=== PATIENT | female | born 1985 | race Caucasian/White ===

== ENCOUNTER → 2018-01-28 | Outpatient (CLI) | payer BC | END | disposition home or self-care (01) | LOC: LABWHC1 12:13 | PROVIDERS: ATTEND Obstetrics & Gynecology Maternal & Fetal Medicine | DX: Z34.81 Encounter for supervision of other normal pregnancy, first trimester (principal); Z3A.00 Weeks of gestation of pregnancy not specified | CPT/HCPCS: 36415; 82105; 82677; 84702; 86336 ==

== ENCOUNTER → 2018-04-01 | Outpatient (CLI) | payer BC ==
[2018-04-01 10:51] LABS: HCT 32.1 % (34.0-46.0); HGB 10.5 gm/dL (11.4-16.0); Hypochromasia Slight; MCH 30.2 pg (25.0-35.0); MCHC 32.9 g/dL (31.0-37.0); MCV 91.8 fL (80.0-100.0); Mean Platelet Volume 7.4; Platelet Count 269 k/uL (150-450); RBC 3.49 m/uL (3.80-5.40); RDW 13.2 % (11.5-15.5); WBC 8.3 k/uL (3.8-10.6)
== END | disposition home or self-care (01) ==
LOC: LABWHC1 08:29
PROVIDERS: ATTEND Obstetrics & Gynecology
DX: Z34.82 Encounter for supervision of other normal pregnancy, second trimester (principal); Z3A.00 Weeks of gestation of pregnancy not specified
CPT/HCPCS: 36415; 82950; 85027

== ENCOUNTER 2018-06-28 22:55 | Inpatient (IN) | payer BC ==
[2018-06-28] MEDS ORDERED: BUTORPHANOL 1 MG/ML 1 ML VIAL IV PRN (23:22)
[2018-06-28] MEDS ORDERED: CARBOPROST TROMETHAMINE 250 MCG/ML 1 ML AMP IM PRN (23:22)
[2018-06-28] MEDS ORDERED: OXYTOCIN 10 UNIT/ML 1 ML VIAL IM PRN (23:22)
[2018-06-28] MEDS ORDERED: METHYLERGONOVINE 0.2 MG/ML 1 ML AMP IM PRN (23:22)
[2018-06-28] MEDS ORDERED: LIDOCAINE 0.5% (PF) 5 MG/ML (50 ML SDV) SQ PRN (23:22)
[2018-06-28] MEDS ORDERED: TERBUTALINE 1 MG/ML VIAL SQ PRN (23:22)
[2018-06-28] MEDS ORDERED: OXYTOCIN 20 UNITS/1000 ML NS 1,000 ML IV SCH (23:30)
[2018-06-28] MEDS ORDERED: LIDOCAINE 1% INJ 10MG/ML (20 ML MDV) SQ PRN (23:41)
[2018-06-29] MEDS: LACTATED RINGERS 1,000 ML IV SCH ×2 (00:02→01:30)
[2018-06-29 00:04] LABS: Basophils % (A) 0 %; Eosinophils # (A) 0.1 k/uL (0-0.7); Eosinophils % (A) 1 %; HCT 34.2 % (34.0-46.0); HGB 11.4 gm/dL (11.4-16.0); Lymphocytes # (A) 1.9 k/uL (1.0-4.8); Lymphocytes % (A) 20 %; MCH 28.9 pg (25.0-35.0); MCHC 33.4 g/dL (31.0-37.0); MCV 86.4 fL (80.0-100.0); Monocytes # (A) 0.5 k/uL (0-1.0); Monocytes % (A) 5 %; Neutrophils # (A) 6.7 k/uL (1.3-7.7); Neutrophils % (A) 71 %; Platelet Count 225 k/uL (150-450); RBC 3.95 m/uL (3.80-5.40); RDW 15.7 % (11.5-15.5); WBC 9.3 k/uL (3.8-10.6)
[2018-06-29 00:17] VITALS: BMI 30.4
[2018-06-29] MEDS ORDERED: fentaNYL (PF) 50 MCG/ML 5 ML AMP ONE (01:27)
[2018-06-29] MEDS ORDERED: ROPIVACAINE 5MG/ML 20ML VIAL ONE (01:27)
[2018-06-29] MEDS ORDERED: SODIUM CHLORIDE 0.9% 100 ML BAG ONE (01:27)
[2018-06-29] MEDS ORDERED: ROPIVACAINE 100 MG, fentaNYL (PF) 200 MCG in SODIUM CHLORIDE 0.9% 76 ML EPIDURAL ONE (02:20)
--- NOTE | 2018-06-29 03:06 | P.HPOB ---
History of Present Illness H&P Date: 06/29/18 Chief Complaint: Spontaneous rupture membranes This is a 32-year-old female 2 para 1 with an estimated date of confinement of 07/15/2018, estimated gestational age of 37-5/7 weeks, who presents to labor and delivery with complaints of spontaneous rupture membranes with clear fluid noted at approximately 10 PM. She denies feeling any regular contractions upon arrival. course has been essentially uncomplicated. She was given Fries weekly up until 35 weeks due to history of delivery at 35 weeks with her last child. She had no issues with labor this . labs: Hepatitis B surface antigen-negative RPR-nonreactive Rubella-immune Blood type-A+ Antibody screen-negative HIV-nonreactive Hemoglobin-12.9 Random glucose-77 Group B streptococcus-negative One hour Glucola-110 Obstetrical ultrasound-normal anatomy Obstetrical history: . History of 1 vaginal delivery at 35 weeks. Gynecologic history: She does have a history of HPV. No other history of sexually transmitted diseases. Social history: She is . She works part-time as an occupational therapist. Review of Systems Constitutional: Denies chills, Denies fever Eyes: denies blurred vision, denies pain Ears, nose, mouth and throat: Denies headache, Denies sore throat Cardiovascular: Denies chest pain, Denies shortness of breath Respiratory: Denies cough Gastrointestinal: Reports abdominal pain (Irregular contractions) Genitourinary: Reports pelvic pain, Reports Musculoskeletal: Reports low back pain Integumentary: Denies pruritus, Denies rash Neurological: Denies numbness, Denies weakness Psychiatric: Denies anxiety, Denies depression Past Medical History Additional Past Medical History / Comment(s): migraines History of Any Multi-Drug Resistant Organisms: None Reported Past Surgical History: Orthopedic Surgery Additional Past Surgical History / Comment(s): right hand. wisdom teeth Past Anesthesia/Blood Transfusion Reactions: No Reported Reaction Past Psychological History: No Psychological Hx Reported Smoking Status: Never smoker Past Alcohol Use History: None Reported Past Drug Use History: None Reported - Past Family History Mother Family Medical History: Hyperlipidemia Father Family Medical History: Hypertension Son(s) Family Medical History: Asthma Additional Family Medical History / Comment(s): premature delivery @ 35 weeks Medications and Allergies Home Medications Medication Instructions Recorded Confirmed Type Pnv No.95/Ferrous Fum/Folic AC 1 tablet PO DAILY 06/28/18 06/28/18 History [ Multivitamin Tablet] Allergies Allergy/AdvReac Type Severity Reaction Status Date / Time codeine Allergy Severe Anaphylaxis Verified 06/28/18 23:06 Exam Osteopathic Statement: *. No significant issues noted on an osteopathic structural exam other than those noted in the History and Physical/Consult. Vital Signs Temp Pulse Resp BP Pulse Ox 06/28/18 23:12 97.6 F 101 H 16 128/85 97 Intake and Output 06/28/18 06/28/18 06/29/18 14:59 22:59 06:59 Other: Weight 80.286 kg HEENT: Within normal limits Heart: Regular rate and rhythm Lungs: Clear to auscultation bilaterally Abdomen: Cervix: On admission was 3-1/2-4 cm/70%/-2 station heart tones: Reactive Contractions: Irregular Extremities: Negative Homans Results Result Diagrams: 06/28/18 23:44 Abnormal Lab Results - Last 24 Hours (Table) 06/28/18 Range/Units 23:44 RDW 15.7 H (11.5-15.5) % Assessment and Plan (1) 37 weeks gestation of Current Visit: Yes Status: Acute Code(s): Z3A.37 - 37 WEEKS GESTATION OF SNOMED Code(s): 87820329 (2) Spontaneous rupture of membranes Current Visit: Yes Status: Acute Code(s): KXN9531 - SNOMED Code(s): 263536062 Plan: Admission for early labor. Oxytocin augmentation of labor if necessary. Epidural anesthesia if desired. Expectant management.
--- NOTE | 2018-06-29 03:09 | P.MSEPDOC ---
Presenting Problems - Arrival Data Date of Arrival on Unit: 06/28/18 Time of Arrival on Unit: 23:15 Mode of Transport: Wheelchair - Complaint OB-Reason for Admission/Chief Complaint: Rule Out SROM Comment: SROM clear fluid at 2200 Medical History - Information : 2 Para: 1 Term: 0 : 1 Abortions: Spontaneous or Elective: 0 Number of Living Children: 1 - Gestational Age Gestational Age by CAMPOS (wks/days): 37 Weeks and 5 Days Review of Systems - Review of Systems Constitutional: No problems Breast: No problems ENT: No problems Cardiovascular: No problems Respiratory: No problems Gastrointestinal: No problems Genitourinary: No problems Musculoskeletal: No problems Neurological: No problems Skin: No problems Vital Signs - Temperature Temperature: 97.6 F Temperature Source: Temporal Artery Scan - Pulse Right Pulse Rate: 101 Pulse Assessment Method: Pulse Oximetry - Respirations Respiratory Rate: 16 O2 Sat by Pulse Oximetry: 97 - Blood Pressure Right Arm Blood Pressure: 128/85 Blood Pressure Mean: 99 Blood Pressure Source: Automatic Cuff Medical Screen Scoring (Pre) - Cervical Exam Dilation: 1-3 cm = 1 Effacement: More than 50% = 2 Membranes: Ruptured = 3 - Uterine Contractions Frequency: > or = 36 weeks =2 Duration: > 40 seconds = 2 Intensity: N/A - Maternal Vital Signs Maternal Temperature: N/A Maternal Blood Pressure: N/A Maternal Respirations: N/A - Pain Assessment Pain Location and Character: Abdomen Pain Scale Used: Numeric (1 - 10) Pain Intensity: 0 Pain Management Goal: 3 - Assessment Baseline FHR: 160 Heart Rate - NICHD Category: Category I (Normal) = 0 NST: Reactive Position: N/A Station: N/A - Total Score Total Score (Pre): 10 - Level of Risk Level of Risk: High (10+) Physician Notification (Pre) - Physician Notified Physician Notified Date: 06/28/18 Physician Notified Time: 23:10 Physician/Practitioner Notifed:: Dr Brown - Notification Comment Comment: reported to Dr Stephanie HINES clear fluid at 2200, positive amnisure and leaking. Reported on fhts, cntrx pattern, vitals, pt not having any pain, hx PTD , progesterone shots, hx HPV. Orders to admit for labor, start IV, start pitocin at 0030 if minimal progress being made. Disposition - Disposition OB Disposition: Admit Transferred to:: st 11 I agree with the RN Medical Screening Exam: Yes Risk & Benefit of care provided described in d/c instruction: Yes Diagnosis: ENCOUNTER FOR FULL-TERM UNCOMPLICATED DELIVERY
--- NOTE | 2018-06-29 04:13 | P.PROBDLV ---
Vaginal Delivery Note - . Vaginal Delivery Note: The patient progressed to complete dilation without any oxytocin augmentation. She did receive epidural anesthesia. Once reaching complete, she began pushing. Infant's head came to a crown. With one further push, the infant's head delivered across the perineum followed by the anterior shoulder and immediately followed by the body. Nuchal cord times one was reduced around the body with delivery. Infant was placed on mother's abdomen. Cry was noted after some stimulation. Per patient request, delayed cord clamping was carried out. Cord was clamped and cut. Infant was taken to warmer for evaluation. A viable female infant was noted with scores of 7 at 1 minute and 9 at 5 minutes. Infant weight was 8 lbs. 2 oz. Placenta delivered shortly thereafter , intact, with a three-vessel cord. Uterus contracted well after oxytocin was given and uterine massage was carried out. Bladder was also drained with a catheter. Inspection of the perineum revealed a small first-degree perineal laceration. This area was anesthetized with 1% lidocaine and sutured with 3-0 Vicryl suture in a running locked fashion. Estimated blood loss is approximately 200 mL's. Mother is in stable condition and infant is taken to nursery for evaluation.
[2018-06-29] MEDS ORDERED: HYDROCORTISONE 2.5% RECTAL CREAM 30 GM TUBE RECTAL PRN (04:36)
[2018-06-29] MEDS ORDERED: diphenhydrAMINE 25 MG CAP PO PRN (04:36)
[2018-06-29] MEDS ORDERED: BENZOCAINE/MENTHOL SPRAY 1 GM/SPRAY AEROSOL TOPICAL PRN (04:36)
[2018-06-29] MEDS ORDERED: ACETAMINOPHEN TAB 325 MG TAB PO PRN (04:36)
[2018-06-29] MEDS ORDERED: WITCH HAZEL 1 EACH MED..PAD TOPICAL PRN (04:36)
[2018-06-29] MEDS ORDERED: LANOLIN CREAM 5 GM TUBE TOPICAL PRN (04:36)
[2018-06-29] MEDS ORDERED: ZOLPIDEM 5 MG TAB PO PRN (04:36)
[2018-06-29] MEDS ORDERED: diphenhydrAMINE 50 MG CAP PO PRN (04:36)
[2018-06-29] MEDS ORDERED: diphenhydrAMINE 50 MG/ML 1 ML VIAL IVP PRN ×2 (04:36)
[2018-06-29] MEDS ORDERED: SIMETHICONE 80 MG CHEWABLE PO PRN (04:36)
[2018-06-29] MEDS ORDERED: OXYTOCIN 20 UNITS/1000 ML NS 1,000 ML IV SCH (04:36)
[2018-06-29] MEDS: IBUPROFEN 600 MG TAB PO PRN ×3 (05:01→17:34)
[2018-06-29] MEDS: SENNOSIDES-DOCUSATE SODIUM 1 EACH TAB PO SCH ×2 (11:41→19:46)
[2018-06-30 07:05] LABS: Basophils % (A) 0 %; Eosinophils # (A) 0.2 k/uL (0-0.7); Eosinophils % (A) 2 %; HCT 30.6 % (34.0-46.0); HGB 10.1 gm/dL (11.4-16.0); Lymphocytes # (A) 1.9 k/uL (1.0-4.8); Lymphocytes % (A) 22 %; MCH 28.7 pg (25.0-35.0); MCV 86.8 fL (80.0-100.0); Monocytes # (A) 0.4 k/uL (0-1.0); Monocytes % (A) 4 %; Neutrophils # (A) 6.1 k/uL (1.3-7.7); Neutrophils % (A) 70 %; Platelet Count 173 k/uL (150-450); RBC 3.52 m/uL (3.80-5.40); RDW 15.9 % (11.5-15.5); WBC 8.6 k/uL (3.8-10.6)
[2018-06-30] MEDS: IBUPROFEN 600 MG TAB PO PRN ×2 (09:47→16:27)
[2018-06-30] MEDS: SENNOSIDES-DOCUSATE SODIUM 1 EACH TAB PO SCH ×2 (09:47→20:03)
--- NOTE | 2018-06-30 12:04 | P.PNOBGVD ---
Subjective - Subjective Principal diagnosis: Status post vaginal delivery day #1 Interval history: Patient is doing well. She is working on breast-feeding. Lochia is decreasing. Pain is fairly well controlled. Baby is in level I nursery on antibiotics. Patient reports: Reports appetite normal, Reports voiding normally, Reports pain well controlled, Reports ambulating normally : doing well, nursing well, other (In level I nursery) Objective - Latest Vital Signs Latest vital signs: Vital Signs Temp Pulse Resp BP 06/30/18 08:00 98.6 F 95 16 125/73 06/29/18 23:35 98.3 F 92 16 116/78 06/29/18 20:00 98.2 F 102 H 16 111/68 06/29/18 16:00 98.2 F 101 H 14 124/81 Intake and Output 06/29/18 06/30/18 06/30/18 22:59 06:59 14:59 Other: # Voids 1 1 2 - Exam Extremities: Present: normal. Absent: tenderness, edema Abdomen: Present: normal appearance, soft. Absent: distention, tenderness Uterus: Present: normal, firm. Absent: tenderness - Labs Labs: Abnormal Lab Results - Last 24 Hours (Table) 06/30/18 Range/Units 06:48 RBC 3.52 L (3.80-5.40) m/uL Hgb 10.1 L (11.4-16.0) gm/dL Hct 30.6 L (34.0-46.0) % RDW 15.9 H (11.5-15.5) % Assessment and Plan Assessment: Status post vaginal delivery day #1 (1) 37 weeks gestation of Current Visit: Yes Status: Acute Code(s): Z3A.37 - 37 WEEKS GESTATION OF SNOMED Code(s): 35680987 (2) Spontaneous rupture of membranes Current Visit: Yes Status: Acute Code(s): XCS9270 - SNOMED Code(s): 740599468 Plan: Continue with care today. Anticipate discharge home tomorrow.
--- NOTE | 2018-07-01 05:30 | P.DS ---
Providers Date of admission: 06/28/18 23:18 Expected date of discharge: 07/01/18 Attending physician: Gisella Brown Primary care physician: Stated None - Discharge Diagnosis(es) (1) 37 weeks gestation of Current Visit: Yes Status: Acute (2) Spontaneous rupture of membranes Current Visit: Yes Status: Acute Hospital Course: This is a 32-year-old female 2 para 1 at 37-5/7 weeks who presented in active labor. She delivered vaginally a viable female infant on 06/29/2018 with scores of 7 at 1 minute and 9 at 5 minutes and infant weight of 8 lbs. 2 oz. Her course has been essentially uncomplicated. Lochia has been decreasing. She is breast-feeding. Pain is fairly well controlled with ibuprofen. Vital signs are stable. Abdomen is soft with fundus firm and nontender. Extremities show negative Homans. Impression is status post vaginal delivery day #2. Plan is to discharge home today. Routine instructions are given. She states she has a breast pump at home. She will be given a prescription for ibuprofen. She is advised to follow-up in the office in 6 weeks for a check. She is advised to call the office if she has any further questions or concerns prior to her appointment time. Procedures: Spontaneous vaginal delivery of a viable female on 06/29/2018 Patient Condition at Discharge: Stable Plan - Discharge Summary New Discharge Prescriptions: New Ibuprofen [Motrin] 600 mg PO Q6HR PRN #60 tab PRN Reason: Mild Pain Or Fever >= 100.5 Continue Pnv No.95/Ferrous Fum/Folic AC [ Multivitamin Tablet] 1 tablet PO DAILY Discharge Medication List Pnv No.95/Ferrous Fum/Folic AC [ Multivitamin Tablet] 1 tablet PO DAILY 06/28/18 [History] Ibuprofen [Motrin] 600 mg PO Q6HR PRN #60 tab 07/01/18 [Rx] Follow up Appointment(s)/Referral(s): Gisella Brown DO [Doctor of Osteopathic Medicine] - 6 Weeks Activity/Diet/Wound Care/Special Instructions: Instructions 1. Do not begin any exercise program for 3 weeks. 2. Do not resume sexual relations for 3 weeks or longer if uncomfortable. 3. You may take tub baths or showers at any time. 4. You may use tampons if desired after 3 weeks. 5. Keep the area of episiotomy (stitches) clean and dry. 6. If you are not nursing, wear a good fitting, supportive bra during the day and limit fluid intake for at least 1 week to prevent breast engorgement. 7. Call the office, [phone], within the next week to make appointment for your 6 week checkup if it has not already been made. 8. Report any of the following occurrences to the doctor promptly: a. Heavy, excessive bleeding b. Chills, fever c. Burning or frequency of urination d. Pain or redness and breasts if nursing e. Increasing pain or swelling in episiotomy (stitches). In addition to the above instructions, the following additional should be followed: 1. No heavy lifting or straining (exercising) until after 6 week checkup. 2. Keep abdominal incision clean and dry: You may wear a dressing if more comfortable. 3. Make office appointment for 10 days after going home or as instructed by her doctor. Discharge Disposition: HOME SELF-CARE
[2018-07-01] MEDS: SENNOSIDES-DOCUSATE SODIUM 1 EACH TAB PO SCH (08:23)
[2018-07-01] MEDS: IBUPROFEN 600 MG TAB PO PRN (08:26)
[2018-07-01 08:35] VITALS: RESP 17
[2018-07-01 15:46] VITALS: BP 111/70; PULSE 70; TEMP 99
== END 2018-07-01 17:52 | disposition home or self-care (01) | DRG 807 ==
LOC: FBPOP 22:55 → 4FBP 23:18
PROVIDERS: ADMIT Obstetrics & Gynecology; ATTEND Obstetrics & Gynecology
PROC: 10E0XZZ Delivery of Products of Conception, External Approach (ICD-10-PCS; principal; 2018-06-29)
PROC: 0HQ9XZZ Repair Perineum Skin, External Approach (ICD-10-PCS; 2018-06-29)
PROC: 00HU33Z Insertion of Infusion Device into Spinal Canal, Percutaneous Approach (ICD-10-PCS; 2018-06-29)
PROC: 3E0R3BZ Introduction of Anesthetic Agent into Spinal Canal, Percutaneous Approach (ICD-10-PCS; 2018-06-29)
DX: O69.81X0 Labor and delivery complicated by cord around neck, without compression, not applicable or unspecified (principal); Z37.0 Single live birth; O70.0 First degree perineal laceration during delivery; Z3A.37 37 weeks gestation of pregnancy; G43.909 Migraine, unspecified, not intractable, without status migrainosus; Z88.5 Allergy status to narcotic agent; Z79.899 Other long term (current) drug therapy; Z82.49 Family history of ischemic heart disease and other diseases of the circulatory system; Z82.5 Family history of asthma and other chronic lower respiratory diseases; Z83.49 Family history of other endocrine, nutritional and metabolic diseases
CPT/HCPCS: 59025; 84112; 85025; 86850; 86900; 86901; 99213

== ENCOUNTER → 2020-11-03 | Outpatient (CLI) | payer OTHER ==
--- NOTE | 2020-11-03 16:19 | US ---
EXAMINATION TYPE: US OB >= 14 wk fetus DATE OF EXAM: 11/03/2020 COMPARISON: None CLINICAL HISTORY: O09.521 Maternal age greater than 35, Z36 Confirm. Dates TECHNIQUE: Transabdominal (TA) GESTATIONAL AGE / DATING Physician Established: Not yet established Dates by LMP (14 weeks/6 days) EDC: 04/28/2021 Dates by First Scan: No previous this is first scan Dates by Current Scan: (15 weeks/6 days) EDC: 04/21/2021 Beta HCG (if available): Not available at this time SURVEY IUP: Single PLACENTA: Anterior PREVIA: No Previa CHRISTIAN: 12.9 cm Normal CERVICAL LENGTH (transabdominal: norm > 3.0cm): 3.5 cm BIOMETRY PRESENTATION: Vertex BPD: 3.2 cm 16 weeks / 0 days HC: 11.8 cm 15 weeks / 6 days AC: 9.8 cm 16 weeks / 0 days FL: 1.8 cm 15 weeks / 3 days ESTIMATED WEIGHT IN GRAMS: 130 grams ESTIMATED WEIGHT IN LBS/OZ: 0 lbs. 5 oz. WEIGHT PERCENTAGE BASED ON ESTABLISHED DATES: 88% HC/AC: 1.2 Normal FL/AC: 18% HEART RATE: 144 bpm RHYTHM: Normal Single live IUP measuring 15 weeks 6 days. IMPRESSION: 1. Single intrauterine with an average ultrasound gestational age of 15 weeks and 6 days. F etal heart rate is 144 bpm. 2. Amniotic fluid index is 12.9 cm. 3. Last menstrual period gestational age is 88%.
== END | disposition home or self-care (01) ==
LOC: RADUSWWP 09:39
PROVIDERS: ATTEND Obstetrics & Gynecology
DX: O09.521 Supervision of elderly multigravida, first trimester (principal); Z3A.15 15 weeks gestation of pregnancy
CPT/HCPCS: 76805

== ENCOUNTER 2021-05-02 23:36 | Inpatient (IN) | payer OTHER ==
[2021-05-03] MEDS ORDERED: LIDOCAINE 0.5% (PF) 5 MG/ML (50 ML SDV) SQ PRN (00:32)
[2021-05-03] MEDS ORDERED: OXYTOCIN 10 UNIT/ML 1 ML VIAL IM PRN (00:32)
[2021-05-03] MEDS ORDERED: METHYLERGONOVINE 0.2 MG/ML 1 ML AMP IM PRN (00:32)
[2021-05-03] MEDS ORDERED: CARBOPROST TROMETHAMINE 250 MCG/ML 1 ML AMP IM PRN (00:32)
[2021-05-03] MEDS ORDERED: TERBUTALINE 1 MG/ML VIAL SQ PRN (00:32)
[2021-05-03] MEDS: LACTATED RINGERS 1,000 ML IV SCH ×3 (00:38→01:55)
[2021-05-03] MEDS ORDERED: OXYTOCIN 30 UNITS/500 ML NS 30 UNIT in SALINE 1 500ML.BAG IV SCH (00:45)
[2021-05-03 01:12] LABS: Basophils % (A) 0 %; Eosinophils # (A) 0.1 k/uL (0-0.7); Eosinophils % (A) 1 %; HCT 37.2 % (34.0-46.0); HGB 12.6 gm/dL (11.4-16.0); Lymphocytes # (A) 1.8 k/uL (1.0-4.8); Lymphocytes % (A) 20 %; MCH 30.8 pg (25.0-35.0); MCHC 33.8 g/dL (31.0-37.0); MCV 91.1 fL (80.0-100.0); Mean Platelet Volume 8.2; Monocytes # (A) 0.4 k/uL (0-1.0); Monocytes % (A) 4 %; Neutrophils # (A) 6.3 k/uL (1.3-7.7); Neutrophils % (A) 72 %; Platelet Count 215 k/uL (150-450); RBC 4.08 m/uL (3.80-5.40); RDW 13.9 % (11.5-15.5); WBC 8.7 k/uL (3.8-10.6)
--- NOTE | 2021-05-03 01:18 | P.HPOB ---
History of Present Illness H&P Date: 05/03/21 Chief Complaint: Contractions This patient is a pleasant 35-year-old 3 para 2 female estimated date of confinement 04/28/2021 estimated gestational age 40-5/7 weeks who presents to labor and delivery with complaints of contractions. Patient was scheduled for induction today per Dr. Brown. Patient's cervix in the office is 4 cm she is 5 cm now having regular contractions. Patient's is complicated by advanced maternal age and appears that she did not want to see maternal medicine. Patient was on progesterone injections apparently due to history of previous 35 week delivery. Review of Systems Genitourinary: Reports Menstruation: Reports amenorrhea Past Medical History Past Medical History: No Reported History Additional Past Medical History / Comment(s): migraines History of Any Multi-Drug Resistant Organisms: None Reported Past Surgical History: Orthopedic Surgery Additional Past Surgical History / Comment(s): right hand. wisdom teeth Past Anesthesia/Blood Transfusion Reactions: No Reported Reaction Additional Past Anesthesia/Blood Transfusion Reaction / Comment(s): Lower blood pressure with both epidurals in the past Past Psychological History: No Psychological Hx Reported Smoking Status: Never smoker Past Alcohol Use History: None Reported Past Drug Use History: None Reported - Past Family History Mother Family Medical History: Hyperlipidemia Father Family Medical History: Hypertension Son(s) Family Medical History: Asthma Additional Family Medical History / Comment(s): premature delivery @ 35 weeks Medications and Allergies Home Medications Medication Instructions Recorded Confirmed Type Pnv No.95/Ferrous Fum/Folic AC 1 tablet PO DAILY 06/28/18 05/02/21 History [ Multivitamin Tablet] Acetaminophen [Tylenol] 325 mg PO Q4H PRN 05/02/21 05/02/21 History Famotidine [Pepcid] 10 mg PO DAILY PRN 05/02/21 05/02/21 History Allergies Allergy/AdvReac Type Severity Reaction Status Date / Time codeine Allergy Severe Anaphylaxis Verified 05/02/21 23:56 Exam Vital Signs Temp Pulse Resp BP Pulse Ox 05/02/21 23:55 97.0 F L 100 16 139/85 98 Intake and Output 05/02/21 05/02/21 05/03/21 14:59 22:59 06:59 Other: Weight 81.193 kg - OBG Physical Exam Abdomen: bowel sounds normal, no diffuse tenderness, no bruit present, no guarding noted, no hepatomegaly, no splenomegaly, no mass Vulva: both: normal Vagina: normal moisture, no discharge Cervix: no lesion (Cervix is 5 cm per the RN.), no discharge Uterus: enlarged (Fundal height in the office 38.5 cm) Results blood work shows she is A positive, rubella immune, RPR nonreactive, hepatitis B negative, HIV was nonreactive, group B strep was negative, ultrasound on March 30 showed the baby to be 6 lbs. 13 oz. to 75th to 90th percentile. Glucola was normal at 93. Assessment and Plan Assessment: This is a pleasant 35-year-old 3 para 2 female 40-5/7 weeks' gestation in early labor. Patient is requesting epidural at this time. Plan is pain control with the epidural and anticipate vaginal delivery. (1) Postmaturity , 40-42 weeks gestation Current Visit: Yes Status: Acute Code(s): O48.0 - POST-TERM SNOMED Code(s): 00728977034013 (2) Normal labor Current Visit: Yes Status: Acute Code(s): O80 - ENCOUNTER FOR FULL-TERM UNCOMPLICATED DELIVERY; Z37.9 - OUTCOME OF DELIVERY, UNSPECIFIED SNOMED Code(s): 33661595 (3) Elderly multigravida Current Visit: Yes Status: Acute Code(s): O09.529 - SUPERVISION OF ELDERLY MULTIGRAVIDA, UNSPECIFIED TRIMESTER SNOMED Code(s): 504436147
[2021-05-03] MEDS ORDERED: SODIUM CHLORIDE 0.9% 100 ML BAG ONE (01:31)
[2021-05-03] MEDS ORDERED: fentaNYL (PF) 50 MCG/ML 5 ML AMP ONE (01:31)
[2021-05-03] MEDS ORDERED: ROPIVACAINE 5MG/ML 20ML VIAL ONE (01:31)
[2021-05-03] MEDS: OXYTOCIN 30 UNITS/500 ML NS 30 UNIT in SALINE 1 500ML.BAG IV SCH ×2 (04:35→06:54)
[2021-05-03] MEDS ORDERED: ACETAMINOPHEN TAB 325 MG TAB PO PRN (04:44)
[2021-05-03] MEDS ORDERED: diphenhydrAMINE 25 MG CAP PO PRN (04:44)
[2021-05-03] MEDS ORDERED: BENZOCAINE/MENTHOL SPRAY 1 GM/SPRAY AEROSOL TOPICAL PRN (04:44)
[2021-05-03] MEDS ORDERED: bisacodyL 10 MG SUPP RECTAL PRN (04:44)
[2021-05-03] MEDS ORDERED: diphenhydrAMINE 50 MG/ML 1 ML VIAL IVP PRN (04:44)
[2021-05-03] MEDS ORDERED: LANOLIN CREAM 5 GM TUBE TOPICAL PRN (04:44)
[2021-05-03] MEDS ORDERED: HYDROCORTISONE 2.5% RECTAL CREAM 30 GM TUBE RECTAL PRN (04:44)
[2021-05-03] MEDS ORDERED: SIMETHICONE 80 MG CHEWABLE PO PRN (04:44)
[2021-05-03] MEDS ORDERED: ZOLPIDEM 5 MG TAB PO PRN (04:44)
--- NOTE | 2021-05-03 04:49 | P.PROBDLV ---
Vaginal Delivery Note - . Vaginal Delivery Note: Normal spontaneous vaginal delivery viable male infant Apgars 9 and 9 at 0429 hrs. Please see dictated H&P for intimate details of this patient's admission. Brief summary this is a pleasant 35-year-old 3 para 2 female estimated gestational age 40-5/7 weeks gestation admitted to labor and delivery in active labor. On admission patient is 5 cm dilated she has an epidural placed for pain control. Labor progresses normally and she has spontaneous rupture membranes for clear fluid at 0320 hrs. Patient thereafter becomes complete and pushes approximately 3 times pushes the head to the perineum. Posterior perineum is supported we have controlled delivery of the 's head over the intact perineum. 's position is straight occiput anterior presentation. Mouth and nares are bulb suctioned. There is a nuchal cord which is easily reduced. With gentle downward traction we have delivery the anterior and posterior shoulder and rest this 's body. This is a vigorous viable male Apgars are 9 and 9 delivery time was 0429 hours. Due to the history of jaundice with previous history of jaudice with previous babies, I did not do a delayed cord clamping and we immediately clamped cord and it was cut. It appears to be trivascular. The infant is laid on the mother's abdomen. The placenta is then spontaneously delivered intact. Estimated blood loss is approximately 150 mL. There are no lacerations and no repairs required. and mother are stable in delivery room.
[2021-05-03] MEDS: IBUPROFEN 600 MG TAB PO PRN ×2 (06:37→14:39)
[2021-05-03] MEDS: SENNOSIDES-DOCUSATE SODIUM 1 EACH TAB PO PRN ×2 (07:50→19:44)
[2021-05-04] MEDS: IBUPROFEN 600 MG TAB PO PRN ×2 (00:02→07:57)
[2021-05-04 00:10] VITALS: RESP 16; TEMP 98.2
[2021-05-04] MEDS: SENNOSIDES-DOCUSATE SODIUM 1 EACH TAB PO PRN (07:58)
[2021-05-04 08:15] VITALS: BP 112/72; PULSE 86
--- NOTE | 2021-05-04 08:35 | P.DS ---
Providers Date of admission: 05/02/21 23:36 Expected date of discharge: 05/04/21 Attending physician: Gisella Brown Primary care physician: Stated None Hospital Course: This is a 35-year-old female 3 para 2 at 40-5/7 weeks who presented in active labor. She delivered vaginally a viable male infant on 05/03/2021 with scores of 9 at 1 minute and 9 at 5 minutes and infant weight of 10 lbs. 1 oz. Her course has been uncomplicated. Lochia has been decreasing. Pain is well-controlled. Vital signs are stable. Abdomen is soft with fundus firm and nontender. Extremities show negative Homans. Impression is status post vaginal delivery day #1. Plan is to discharge home today. She has a breast pump at home. Routine instructions are given. She is advised to call the office if she has any further questions or concerns prior to her appointment time. She also will be given a prescription for Zoloft just in case she does start to have depression symptoms. She states she did have this with her previous pregnancies and would like to have a prescription on hand if she needs it. Procedures: Spontaneous vaginal delivery of a viable male on 05/03/2021 Patient Condition at Discharge: Stable Plan - Discharge Summary New Discharge Prescriptions: New Ibuprofen [Motrin] 600 mg PO Q6HR PRN #60 tab PRN Reason: Mild Pain (Scale 1 To 3) Sertraline [Zoloft] 25 mg PO DAILY #30 tablet No Action Pnv No.95/Ferrous Fum/Folic AC [ Multivitamin Tablet] 1 tablet PO DAILY Acetaminophen [Tylenol] 325 mg PO Q4H PRN PRN Reason: Headache Famotidine [Pepcid] 10 mg PO DAILY PRN PRN Reason: Indigestion Discharge Medication List Pnv No.95/Ferrous Fum/Folic AC [ Multivitamin Tablet] 1 tablet PO DAILY 06/28/18 [History] Acetaminophen [Tylenol] 325 mg PO Q4H PRN 05/02/21 [History] Famotidine [Pepcid] 10 mg PO DAILY PRN 05/02/21 [History] Ibuprofen [Motrin] 600 mg PO Q6HR PRN #60 tab 05/04/21 [Rx] Sertraline [Zoloft] 25 mg PO DAILY #30 tablet 05/04/21 [Rx] Follow up Appointment(s)/Referral(s): Gisella Brown DO [Doctor of Osteopathic Medicine] - 06/14/21 11:30 am Activity/Diet/Wound Care/Special Instructions: Instructions 1. Do not begin any exercise program for 3 weeks. 2. Do not resume sexual relations for 3 weeks or longer if uncomfortable. 3. You may take tub baths or showers at any time. 4. You may use tampons if desired after 3 weeks. 5. Keep the area of episiotomy (stitches) clean and dry. 6. If you are not nursing, wear a good fitting, supportive bra during the day and limit fluid intake for at least 1 week to prevent breast engorgement. 7. Call the office, [phone], within the next week to make appointment for your 6 week checkup if it has not already been made. 8. Report any of the following occurrences to the doctor promptly: a. Heavy, excessive bleeding b. Chills, fever c. Burning or frequency of urination d. Pain or redness and breasts if nursing e. Increasing pain or swelling in episiotomy (stitches). In addition to the above instructions, the following additional should be fo llowed: 1. No heavy lifting or straining (exercising) until after 6 week checkup. 2. Keep abdominal incision clean and dry: You may wear a dressing if more comfortable. 3. Make office appointment for 10 days after going home or as instructed by her doctor. Discharge Disposition: HOME SELF-CARE
== END 2021-05-04 13:20 | disposition home or self-care (01) | DRG 807 ==
LOC: 4FBP 23:36
PROVIDERS: ADMIT Obstetrics & Gynecology; ATTEND Obstetrics & Gynecology
PROC: 10E0XZZ Delivery of Products of Conception, External Approach (ICD-10-PCS; principal; 2021-05-03)
DX: O69.81X0 Labor and delivery complicated by cord around neck, without compression, not applicable or unspecified (principal); Z37.0 Single live birth; O48.0 Post-term pregnancy; Z3A.40 40 weeks gestation of pregnancy; Z86.59 Personal history of other mental and behavioral disorders
CPT/HCPCS: 85025; 86850; 86900; 86901

== ENCOUNTER → 2023-10-25 | Outpatient (CLI) | payer OTHER ==
[2023-10-25 16:28] LABS: Estradiol 79.8 pg/mL; T4, Free (Free Thyroxine) 1.43 ng/dL (0.80-1.80); Testosterone <10.00 ng/dL (9.01-47.94)
== END | disposition home or self-care (01) ==
LOC: LABWHC1 10:41
PROVIDERS: ATTEND Obstetrics & Gynecology
DX: N93.8 Other specified abnormal uterine and vaginal bleeding (principal)
CPT/HCPCS: 36415; 82670; 83001; 84144; 84403; 84439; 84443; 84481